=== PATIENT | male | born 1985 | race Caucasian/White ===

== ENCOUNTER 2020-10-31 15:45 | Emergency (ER) | payer MEDICAID, SELFPAY ==
--- NOTE | 2020-10-31 15:49 | ED.GENADUL_ITS ---
Discharge Plan Disposition Patient Disposition: HOME Condition: Good Discharge Details Clinical Impression: Dental infection Primary Care Provider: Amber,Local ED Provider: Cathy Barkley Home Meds and New Rx's Prescriptions: New penicillin V potassium 500 mg tablet 500 mg PO QID Qty: 7 RF: 0 Continued buprenorphine-naloxone [Suboxone] 8-2 mg film 16 film DAILY AM RF: 0 ibuprofen 200 mg Capsule 600 mg PO PRN PRNRF: 0 Discharge Instructions Instructions: Dental Abscess (ED) Additional Instructions: I am concerned you have a dental infection. Antibiotics have been sent to your pharmacy. Encourage water intake, encourage good oral hygiene. Tylenol and/or Ibuprofen as needed for discomfort. You will need follow up with dentist for definitive care. List of local dentists attached. If you develop fevers/chills, swelling or other new/worsening symptoms please seek care urgently once again. Discharge Data Discharge Date/Time-TO BE ENTERED AT DEPARTURE: 10/31/20 16:36 Medical Decision Making Pleasant 35 year old male presenting today with c/c of right lower dental pain x 2-3 days. Denies fever. No swelling. Radiates up toward right ear. On suboxone and has been using ibuprofen for pain. Has fractured teeth in area of pain. Has not seen dentist in 5 years. On exam, non-toxic. Has 3 fractured right lower teeth. Tender along buccal aspect. No lingual pain. No swelling or drainage. No area of fluctuance to suggest abscess. No swelling under the tongue. Structures in posterior oropharynx normal. Will start patient on abx. Gave list of local dentists and encouraged definitive care. Return precautions given. All of his questions and concerns were addressed, he is in agreement with this plan. HPI General Mode of arrival: ambulatory . Date/Time Provider Initiated Documentation: 10/31/20 15:49 . Limitations to Documentation: no limitations . Information obtained by: patient and RN notes reviewed . History of Present Illness 35 year old M presents to the emergency department with the chief complaint of right lower dental pain, described as moderate, Quality is described as aching, and is localized to the mouth. Patient started experiencing this day(s) and it has been constant. No relieving factors improve symptom(s), Eating worsens symptoms . Patient notes no other symptoms.; denies fever/chills. Patient did receive the following treatments prior to arrival, none Related Data Home Medications Medication Instructions Recorded Confirmed buprenorphine-naloxone [Suboxone] 16 film DAILY AM 10/31/20 10/31/20 ibuprofen 600 mg PO PRN PRN 10/31/20 10/31/20 penicillin V potassium 500 mg PO QID #7 tab 10/31/20 Previous Rx's Medication Instructions Recorded penicillin V potassium 500 mg PO QID #7 tab 10/31/20 Allergies Allergy/AdvReac Type Severity Reaction Status Date / Time No Known Allergies Allergy Unverified 10/31/20 15:56 Review of Systems Constitutional Constitutional: Reports as per HPI, Denies chills, Denies fatigue, Denies fever(s), Denies headache(s) and Denies poor appetite Eyes Eyes: Denies change in vision and Denies irritation ENT Ears, Nose, Mouth, and Throat: Reports as per HPI, Reports dental pain, Denies dysphagia, Denies dizziness, Denies dry mouth, Denies ear discharge, Denies otalgia, Reports facial pain, Denies headache(s), Denies hoarseness, Denies lip swelling, Denies nasal congestion, Denies odynophagia and Denies sore throat Respiratory Respiratory: Reports as per HPI and Denies cough Gastrointestinal Gastrointestinal: Reports as per HPI, Denies dysphagia, Denies nausea, Denies odynophagia and Denies vomiting Integumentary/Breasts Skin/Breast: Reports as per HPI, Denies erythema, Denies rash and Denies skin pain Neurologic Neurologic: Reports as per HPI, Denies dizziness and Denies headache(s) Endocrine Endocrine: Denies fatigue Allergic/Immunologic Allergic/Immunologic: Denies lip swelling PFSH Medical History (Updated 10/31/20 @ 16:05 by AUBREY Sweeney) Compression fracture of vertebral column T7 Foot pain lower back pain Surgical History Appendectomy back colonoscopy foot, bilateral L calcaneus ORIF R tibial pilon ORIF wrist Social History Smoking/Tobacco Use Status: Current every day Smoking risk assessment performed?: Yes Drug use: Never Substance use type: does not use Exam Const General: cooperative, healthy appearing, comfortable, no acute distress, well developed and well groomed Nutritional Appearance: average body habitus and well nourished Orientation: alert and awake [facility] Head: normal to inspection, normocephalic and atraumatic Ears: hearing grossly normal bilaterally, external ears normal and TM's normal bilaterally General nose exam: external nose normal and nares normal Face and sinus: normal facial exam, sinuses nontender and face symmetric Mouth: oral mucosae normal, lip normal, tongue normal, no trismus and No restricted motion Teeth and gingiva: poor dentition and other (fractured and decaying right lower posterior 3 teeth) Throat: posterior oropharynx normal, tonsils normal and uvula midline Eyes General: appearance normal, both eyes and all related structures Neck Neck: normal visual inspection, full ROM, no lymphadenopathy, supple and no anterior neck swelling Resp Effort & Inspection: normal respiratory effort, able to speak in complete sentences and no respiratory distress Auscultation: clear to auscultation bilaterally, no rales, no rhonchi and no wheezes Cardio Rate: regular rate Rhythm: regular rhythm Heart Sounds: S1 normal and S2 normal Skin General skin exam: no rashes or lesions noted Trauma: no lacerations or abrasions Neuro General: patient alert and patient awake Cognition: normal cognition Speech: speech normal Gait: normal gait Psych Appearance: grossly normal and well kempt Mental Status: mental status grossly normal Speech and Movement: speech and movement normal
[2020-10-31 15:53] VITALS: BP 134/82; PULSE 75; RESP 18; TEMP 36.6; O2SAT 99
== END 2020-10-31 16:36 | disposition home or self-care (01) ==
PROVIDERS: Emergency Provider Physician Assistant
DX: K04.7 Periapical abscess without sinus (principal)
CPT/HCPCS: 99283

== ENCOUNTER 2022-05-13 23:01 | Emergency (ER) | payer MEDICAID, SELFPAY ==
[2022-05-13 23:16] VITALS: BP 150/99; PULSE 79; RESP 18; TEMP 36; O2SAT 99
--- NOTE | 2022-05-13 23:21 | ED.GENADUL_ITS ---
Discharge Plan Disposition Patient Disposition: Home Condition: Stable Discharge Details Clinical Impression: Dental infection Primary Care Provider: Amber,Local ED Provider: Agus Sanchez Home Meds and New Rx's Prescriptions: New amoxicillin-pot clavulanate 875-125 mg tablet 1 tab PO BID 6 Days Qty: 12 0RF Continued buprenorphine-naloxone [Suboxone] 8-2 mg film 16 film DAILY AM Label Comments: PLACE 2 FILMS UNDER THE TONGUE EVERY DAY ibuprofen 200 mg Capsule 600 mg PO PRN PRN Discontinued penicillin V potassium 500 mg tablet 500 mg PO QID Qty: 7 0RF Discharge Instructions Instructions: Dental Abscess (ED) Additional Instructions: If you develop any difficulty breathing or swallowing, have persistent fevers, or have any significant worsening of your symptoms please return to the e mergency department for reassessment. Otherwise take antibiotics until fully completed. It is very important that you continue to work on obtaining definitive dental care as these issues will continue to recur given your level of dental decay. Discharge Data Discharge Date/Time-TO BE ENTERED AT DEPARTURE: 05/13/22 23:39 Medical Decision Making Patient presenting the emergency department for chief complaint of dental pain. Patient reports that he has had poor dentition for a while and is having difficulty getting into a dentist as he knows he needs a referral to oral surgery for multiple dental extractions. Over the last 3 to 4 days he has noted worsening dental pain and discomfort with pain radiating up into his face and ear. He states mild swelling but otherwise denies any difficulty breathing or swallowing, fevers, or other symptoms. Physical exam shows very poor dentition with significant dental decay throughout the entire oral cavity. Patient is tender mainly to palpation of tooth #4 and 5 with mild erythema noted to the gumline surrounding these teeth. Exam consistent with dental infection with possible early abscess. no signs of deep neck space infection ( Retropharyngeal abscess, Reji's angina, Parapharyngeal space infection, Peritonsillar Abscess (INSTRUMENT CHECKER)) or Epiglottitis. Pt non toxic and stable. We will start patient on Augmentin and give IM Toradol. Patient states clear understanding to follow-up with dental provider for definitive care of dental issues. After discussion of diagnosis and plan of care patient has no further needs, questions, or concerns and states clear understanding to return to the emergency department for any worsening symptoms. This documentation was generated using Dragon dictation system, please disregard any oddities of phrase or misspellings. Sign Out No HPI General Mode of arrival: ambulatory . Date/Time Provider Initiated Documentation: 05/13/22 23:09 . Limitations to Documentation: no limitations . Information obtained by: patient, family and RN notes reviewed . History of Present Illness 36 year old M presents to the emergency department with the chief complaint of Dental pain, described as moderate, severe and similar to prior episodes, with intensity rated at 10. Quality is described as aching and sharp, and is localized to the mouth. Patient started experiencing this day(s) (4) and it has been constant. No relieving factors improve symptom(s), No exacerbating factors reported . Patient notes no other symptoms.. Patient did receive the following treatments prior to arrival, NSAID Related Data Home Medications Medication Instructions Recorded Confirmed buprenorphine 8 mg-naloxone 2 mg 16 film DAILY AM 10/31/20 10/31/20 sublingual film (Suboxone) ibuprofen 200 mg capsule 600 mg PO PRN PRN 10/31/20 10/31/20 amoxicillin 875 mg-potassium 1 tab PO BID 6 days #12 tabs 05/13/22 clavulanate 125 mg tablet Previous Rx's Medication Instructions Recorded amoxicillin 875 mg-potassium 1 tab PO BID 6 days #12 tabs 05/13/22 clavulanate 125 mg tablet Allergies Allergy/AdvReac Type Severity Reaction Status Date / Time No Known Allergies Allergy Unverified 10/31/20 15:56 General Stated Complaint: DentalOral TERE: 4 Review of Systems Constitutional Constitutional: Denies chills and Denies fever(s) ENT Ears, Nose, Mouth, and Throat: Reports as per HPI, Denies change in voice, Reports dental pain, Denies dysphagia, Denies throat swelling and Denies tongue swelling Cardiovascular Cardiovascular: Denies chest pain and Denies dyspnea Respiratory Respiratory: Denies dyspnea, Denies stridor and Denies wheezing Gastrointestinal Gastrointestinal: Denies abdominal pain, Denies dysphagia, Denies nausea and Denies vomiting Integumentary/Breasts Skin/Breast: Denies rash Allergic/Immunologic Allergic/Immunologic: Denies throat swelling, Denies tongue swelling and Denies wheezing PFSH All Active Problems (Updated 05/13/22 @ 23:24 by Agus Sanchez NP) 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, acquired (Acute) Dental infection (Acute) Medical History (Updated 05/13/22 @ 23:24 by Agus Sanchez NP) Compression fracture of vertebral column T7 Foot pain lower back pain Surgical History Appendectomy back colonoscopy foot, bilateral L calcaneus ORIF R tibial pilon ORIF wrist Social History Smoking/Tobacco Use Status: Current every day Tobacco Type: cigarettes Smoking risk assessment performed?: Yes Drug use: Never Substance use type: does not use Do you feel safe at home: Yes Do you feel safe in your relationship?: Yes Exam Const General: cooperative Orientation: alert, awake and oriented x3 Limitations: mental status not altered HENMT Head: normal to inspection, normocephalic and atraumatic Ears: hearing grossly normal bilaterally, normal mastoids bilaterally and no periauricular adenopathy General nose exam: external nose normal Mouth: lip normal, tongue normal, oropharynx normal, no drooling, no muffled voice, normal tongue and no trismus Teeth and gingiva: abnormal tooth or associated gingiva upper right second bicuspid tender and with associated gingival edema; without associated gingival fluctuance, caries and poor dentition Throat: posterior oropharynx normal, tonsils normal and uvula midline Eyes General: appearance normal, both eyes and all related structures Pupils: PERRL Neck Neck: normal visual inspection, full ROM, no lymphadenopathy, no meningeal signs, trachea midline, supple, no anterior neck swelling and no midline deformity Resp Effort & Inspection: normal respiratory effort and able to speak in complete sentences Auscultation: clear to auscultation bilaterally Cardio Rate: regular rate Rhythm: regular rhythm Heart Sounds: S1 normal and S2 normal
[2022-05-13] MEDS: Amoxicillin 875/Clav. 125 TAB PO (23:29)
[2022-05-13] MEDS: Ketorolac 30 MG/ML VIAL IM (23:30)
== END 2022-05-13 23:39 | disposition home or self-care (01) ==
LOC: ER 23:38
PROVIDERS: Emergency Provider Nurse Practitioner Family
DX: K04.7 Periapical abscess without sinus (principal)
CPT/HCPCS: 96372; 99284; 99283; J1885

== ENCOUNTER 2022-06-09 02:43 | Emergency (ER) | payer MEDICAID, SELFPAY ==
[2022-06-09 02:45] VITALS: BP 153/101; PULSE 80; RESP 15; TEMP 36.9; O2SAT 100
--- NOTE | 2022-06-09 02:59 | ED.GENADUL_ITS ---
Discharge Plan Disposition Patient Disposition: Home Condition: Stable Discharge Details Clinical Impression: Dental infection, Facial swelling Primary Care Provider: None,None ED Provider: Viridiana Smiley Home Meds and New Rx's Prescriptions: New amoxicillin-pot clavulanate 875-125 mg tablet 1 tab PO BID 7 Days Qty: 14 0RF Continued buprenorphine-naloxone [Suboxone] 8-2 mg film 16 film DAILY AM Label Comments: PLACE 2 FILMS UNDER THE TONGUE EVERY DAY ibuprofen 200 mg Capsule 600 mg PO PRN PRN Discharge Instructions Instructions: Dental Abscess (ED), Toothache (ED) Additional Instructions: You appear to likely have a dental infection but no evidence of abscess today. Drink plenty of fluids and get plenty of rest. Alternate tylenol and motrin as needed and directed for pain. A prescription for antibiotics has been sent electronically to your pharmacy to take as directed until finished. Call a dentist on the dental list you were given for follow-up. Return to the emergency department with any worsening or new concerning symptom s. Discharge Data Discharge Physician: Viridiana Smiley Medical Decision Making 36-year-old male on Suboxone presents for dental pain and facial swelling for the past few days. Patient has poor dentition throughout with significant dental caries of upper teeth. He has tenderness to palpation to left upper front incisors and right lower molars. He has facial swelling in the left nasojugal groove in addition to tenderness to palpation but no significant fluctuance. He has moderate edema and tenderness to the right jaw. There are no dental abscesses noted. There is no drooling, trismus, submandibular swelling or significant lymphadenopathy. Will cover with Augmentin. Patient requested a Toradol injection. A prescription for Augmentin sent electronically to his pharmacy. He was given a dental follow-up list. Usual and customary return precautions given prior to discharge. Medical Records Medical records reviewed: Yes I reviewed the patient's medical records. HPI General Mode of arrival: ambulatory . Date/Time Provider Initiated Documentation: 06/09/22 02:59 . Limitations to Documentation: no limitations . Information obtained by: patient . HPI Narrative: Patient is a 36-year-old male on Suboxone who presents for dental pain and facial swelling for the past few days. Patient states he has been having trouble getting a dentist appointment. He denies any known fever. Related Data Home Medications Medication Instructions Recorded Confirmed buprenorphine 8 mg-naloxone 2 mg 16 film DAILY AM 10/31/20 10/31/20 sublingual film (Suboxone) ibuprofen 200 mg capsule 600 mg PO PRN PRN 10/31/20 10/31/20 amoxicillin 875 mg-potassium 1 tab PO BID 7 days #14 tabs 06/09/22 clavulanate 125 mg tablet Previous Rx's Medication Instructions Recorded amoxicillin 875 mg-potassium 1 tab PO BID 7 days #14 tabs 06/09/22 clavulanate 125 mg tablet Allergies Allergy/AdvReac Type Severity Reaction Status Date / Time No Known Allergies Allergy Unverified 10/31/20 15:56 General Stated Complaint: DentalOral TERE: 4 Review of Systems All systems reviewed & are unremarkable except as noted in HPI and below Constitutional Constitutional: Reports as per HPI, Denies chills and Denies fever(s) Eyes Eyes: Denies blurry vision ENT Ears, Nose, Mouth, and Throat: Reports dental pain, Denies dizziness, Denies sore throat and Denies throat swelling Cardiovascular Cardiovascular: Denies chest pain and Denies dyspnea Respiratory Respiratory: Denies cough and Denies dyspnea Gastrointestinal Gastrointestinal: Denies abdominal pain, Denies diarrhea and Denies vomiting Genitourinary Genitourinary: Denies hematuria and Denies dysuria Musculoskeletal Musculoskeletal: Denies back pain and Denies numbness Integumentary/Breasts Skin/Breast: Denies lesions and Denies rash Neurologic Neurologic: Denies dizziness, Denies localized weakness and Denies numbness Allergic/Immunologic Allergic/Immunologic: Denies throat swelling PFSH All Active Problems (Updated 06/09/22 @ 03:09 by Viridiana Smiley DO) 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, acquired (Acute) Dental infection (Acute) Dental infection (Acute) Facial swelling (Acute) Medical History (Updated 06/09/22 @ 03:09 by Viridiana Smiley DO) Compression fracture of vertebral column T7 Foot pain lower back pain Surgical History Appendectomy back colonoscopy foot, bilateral L calcaneus ORIF R tibial pilon ORIF wrist Social History Smoking/Tobacco Use Status: Current every day Tobacco Type: cigarettes Smoking risk assessment performed?: Yes Drug use: Never Substance use type: does not use Do you feel safe at home: Yes Do you feel safe in your relationship?: Yes Exam Const General: cooperative, healthy appearing and no acute distress HENMT Head: normal to inspection Ears: hearing grossly normal bilaterally, external ears normal and TM's normal bilaterally General nose exam: external nose normal Face images: 1. Mild to moderate facial edema and tenderness to palpation. There is no crepitus, fluctuance or significant induration. 2. Moderate facial edema and tenderness to palpation. There is no crepitus, fluctuance or significant induration. Mouth: oral mucosae normal, no drooling and no trismus Teeth and gingiva: poor dentition Teeth image: 1. Tenderness to palpation near tooth but no evidence of abscess. 2. Tenderness to palpation of teeth but no evidence of abscess. Eyes General: appearance normal, both eyes and all related structures Neck Neck: normal visual inspection, no lymphadenopathy, no meningeal signs, trachea midline, supple, no anterior neck swelling and No submandibular swelling Resp Effort & Inspection: normal respiratory effort and able to speak in complete sentences Cardio Rate: regular rate Skin General skin exam: no rashes or lesions noted Neuro General: patient alert, patient awake and patient oriented x3 Motor: muscle tone normal throughout Extrem General: normal to inspection and full ROM Psych Appearance: grossly normal Affect: normal affect Course Vital Signs Vital signs: Vital Signs Temperature 98.4 F 06/09/22 02:45 Pulse 80 06/09/22 02:45 Respiratory Rate 15 06/09/22 02:45 Blood Pressure 153/101 H 06/09/22 02:45 Pulse Oximetry 100 06/09/22 02:45 Temperature 98.4 F 06/09/22 02:45 Temperature Source Oral 06/09/22 02:45 Pulse 80 06/09/22 02:45 Respiratory Rate 15 06/09/22 02:45 Blood Pressure 153/101 H 06/09/22 02:45 Pulse Oximetry 100 06/09/22 02:45 Oxygen Delivery Method Room Air 06/09/22 02:45 Oxygen Flow Rate 0 06/09/22 02:45 Pain Level 9 06/09/22 02:45
[2022-06-09] MEDS: Amoxicillin 875/Clav. 125 TAB PO (03:19)
[2022-06-09] MEDS: Ketorolac 60 MG/2 ML VIAL IM (03:19)
[2022-06-09] MEDS: Amox. 875/Clav. 125, 2 TABS/BTL 1 TAB PO (03:20)
== END 2022-06-09 03:20 | disposition home or self-care (01) ==
PROVIDERS: Emergency Provider Physician Assistant
DX: K04.7 Periapical abscess without sinus (principal)
CPT/HCPCS: 96372; 99284; 99283; J1885